=== PATIENT | male | born 1990 | race African-American/Black ===

== ENCOUNTER 2017-09-17 12:11 | Emergency (ER) | payer MEDICAID, OTHER ==
[~2017-09-17] VITALS: Ht 175.3 cm; Wt 112.5 kg
[2017-09-17] MEDS ORDERED: ACYCLOVIR400 MG ORAL (12:45)
[2017-09-17] MEDS ORDERED: TYLENOL EXTRA500 MG ORAL (12:45)
--- NOTE | 2017-09-17 12:45 | Emergency Room Report ---
History of Present Illness General Chief Complaint: Allergic Reaction Source: Patient Present Illness HPI 27-year-old male patient presents to ER complaining of swelling of his bottom lip. Patient reports that last night there was a bump on his lip that he tried to pop and when he woke up this morning it was much bigger. Reports thinks its "allergic reaction", denies exposure to new foods or known allergens. Patient denies any drainage from it. Patient reports a history of similar symptoms 1 year ago. Patient denies any other symptoms. Patient denies fever, chest pain , shortness of breath. Patient denies tongue swelling, vomiting, shortness of breath, tooth pain.reports to not take any medication for relief of symptoms. Denies history of trauma or biting lip. Allergies: Coded Allergies: No Known Allergies (Verified Allergy, Unknown, 11/24/08) Patient History Past Medical History: see triage record Reviewed Nursing Documentation: PMH: Agreed; PSxH: Agreed Nursing Documentation-PMH Past Medical History: No History, Except For Review of Systems All Other Systems: negative except mentioned in HPI Physical Exam Vital Signs Date Time Temp Pulse Resp B/P (MAP) Pulse Ox O2 Delivery O2 Flow Rate FiO2 09/17/17 12:23 98.2 74 18 143/90 100 Room Air 98.2 Sp02 EP Interpretation: reviewed, normal General Appearance: well appearing, no apparent distress, alert, GCS 15, non- toxic Head: normocephalic, atraumatic ENT: hearing grossly normal, normal pharynx, no angioedema, normal voice, uvula midline, moist mucus membranes Neck: full range of motion Respiratory: lungs clear, normal breath sounds, no rhonchi, no respiratory distress, no accessory muscle use, no wheezing, speaking full sentences Cardiovascular #1: regular rate, rhythm, no edema Musculoskeletal: back normal, digits/nails normal, gait/station normal, normal range of motion, non-tender Psychiatric: mood/affect normal Skin: other - bottome lip, right medial side: swollen lip, no teeth webster, no active drainage, discoloration noted, TTP, mild dried crust Medical Decision Making PA Attestation Dr. Adams is my supervising Physician whom patient management has been discussed with. Diagnostic Impression: Primary Impression: Sore of lower lip ER Course Pt. presents to the ED c/o cold sore on mouth. Ddx considered but are not limited to atopic dermatitis, gingivostomatitis, trauma, allergic reaction, fibrosis. Vital signs: are WNL, pt. is afebrile Ordered Benadryl. ER COURSE: PE consistent with trauma vs early onset/popped cold sore vs allergic reaction. Low suspicion for fibrosis or bacterial infection. Due to patient history of similar symptoms in the past, will provide treatment for cold sore. Provide patient with Benadryl if allergic reaction. Patient may use Abreva at home, OTC. Apply ice to help with swelling symptoms. F/u with PCP and discuss further treatment as needed. DISCHARGE: -Rx given for Acyclovir, 400mg TID x7 days. -Rx given for Tylenol for pain -Rx given for Benadryl. SE drowsiness, do not take prior to drinking driving or operating heavy machinery. At this time pt. is stable for d/c to home. Patient is resting comfortably in no acute distress, nontoxic appearing, talking, smiling without difficulty. Will provide printed patient care instructions, and any necessary prescriptions. Patient instructed to follow with primary care provider in 3-5 days for further treatment and referral as needed. Informed patient breakouts may occur during periods of stress or illness. Discuss future treatment options to prevent breakouts with patient; informed patient to discuss with primary care provider. Care plan and follow up instructions have been discussed with the patient prior to discharge. Patient reports understanding and agreement to treatment plan. Patient questions asked and answered. ER precautions given, patient instructed to return to ER immediately for any new or worsening of symptoms. -Please note this Emergency Department Report was dictated using [employer] technology software, occasionally this can lead to erroneous entry secondary to interpretation by the dictation equipment. Last Vital Signs Date Time Temp Pulse Resp B/P (MAP) Pulse Ox O2 Delivery O2 Flow Rate FiO2 09/17/17 12:23 98.2 74 18 143/90 100 Room Air 98.2 Disposition: HOME, SELF-CARE Condition: Stable Scripts Diphenhydramine Hcl* (BENADRYL*) 25 Mg Capsule 25 MG ORAL Q6H PRN for Itching, #15 CAP Prov: Adonay Singleton P.A. 09/17/17 Acetaminophen* (TYLENOL EXTRA STRENGTH*) 500 Mg Tablet 500 MG ORAL Q8H PRN for Prn Headache/Temp > 101, #30 TAB 0 Refills Prov: Adonay Singleton 09/17/17 Acyclovir* (ACYCLOVIR*) 400 Mg Tablet 400 MG ORAL THREE TIMES A DAY, #21 TAB Prov: Adonay Singleton 09/17/17 Patient Instructions: Cold Sore, [id number] Additional Instructions: Followup with primary care provider in 3 -5 days. Take medications as directed. Benadryl SE causes drowsiness, do not take prior to drinking, driving, or operating heavy machinery. Patient questions asked and answered. ER precautions given, patient instructed to return to ER immediately for any new or worsening of symptoms. Adonay Singleton September 17, 2017 12:45
[2017-09-17] MEDS ORDERED: BENADRYL25 MG ORAL (12:47)
[2017-09-17 12:48] VITALS: BP 144/88
[2017-09-17 12:57] VITALS: BP 144/88
== END 2017-09-17 12:58 | disposition home or self-care (01) ==
LOC: EMR 12:43
DX: K13.79 Other lesions of oral mucosa (principal)
CPT/HCPCS: 99284

== ENCOUNTER 2018-07-19 22:21 | Emergency (ER) | payer SELFPAY ==
[~2018-07-19] VITALS: Ht 175.3 cm; Wt 104.3 kg
[~2018-07-19 22:21] MED LIST: ACYCLOVIR400 MG ORAL; BENADRYL25 MG ORAL; TYLENOL EXTRA500 MG ORAL
[2018-07-19] MEDS ORDERED: NKM (22:29)
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
[2018-07-20] MEDS ORDERED: Norco 5mg/325mg tab ORAL ONE (00:15)
[2018-07-20] MEDS ORDERED: HYDROCODON-ACE1 EA15 ORAL (00:35)
[2018-07-20] MEDS ORDERED: IBUPROFEN600 MG ORAL (00:35)
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
[2018-07-20 00:45] VITALS: BP 122/61
[2018-07-20 01:00] VITALS: BP 122/61
--- NOTE | 2018-07-20 01:00 | NUR ---
ED Nurse Note: PT BEING D/C TO HOME, AWAKE, ALERT AND ORIENTED X 4, PT REFUSED ORAL MED FOR PAIN, STATES IS DRIVING, PT GIVEN PRESCRIPTION FOR PAIN MEDS TO TAKE AT HOME, ALSO GIVEN F/U INFO AND AFTER CARE INSTRUCTIONS, PT ARMBAND REMOVED, NAD NOTED DURING D/C TO HOME.
== END 2018-07-20 01:00 | disposition home or self-care (01) ==
LOC: EMR 23:55
DX: S39.012A Strain of muscle, fascia and tendon of lower back, initial encounter (principal); M54.2 Cervicalgia; V43.52XA Car driver injured in collision with other type car in traffic accident, initial encounter; Y92.89 Other specified places as the place of occurrence of the external cause; F17.200 Nicotine dependence, unspecified, uncomplicated
CPT/HCPCS: 99282

== ENCOUNTER 2018-11-30 21:02 | Emergency (ER) | payer MEDICAID, OTHER ==
[~2018-11-30] VITALS: Ht 175.3 cm; Wt 112.9 kg
[~2018-11-30 21:02] MED LIST changes: +HYDROCODON-ACE1 EA15 ORAL; +IBUPROFEN600 MG ORAL; +NKM
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
[2018-11-30] MEDS ORDERED: Acetaminophen 500mg (ES) tab ORAL ONE (22:15)
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
--- NOTE | 2018-11-30 23:08 | Diagnostic Imaging Report ---
Indication: Foot Pain Comparison: None Findings: 3 views of the right foot were obtained. No acute fractures, malalignment, erosions or periostitis are identified. Impression: No acute findings.
--- NOTE | 2018-11-30 23:08 | Diagnostic Imaging Report ---
Indication: Foot pain Comparison: None Findings: 3 views of the left foot were obtained. No acute fractures, malalignment, erosions or periostitis are identified. Marginal osteophytes noted in the area of the talonavicular joint consistent with arthrosis as well as a mild degenerative subluxation of the first MTP joint. Soft tissues are unremarkable. Impression: No acute findings
--- NOTE | 2018-11-30 23:09 | Diagnostic Imaging Report ---
Indication: left ankle pain Comparison: None Findings: 3 views of the left ankle obtained. Soft tissues are unremarkable. No acute fracture, malalignment, periostitis, or osteochondral defects are identified. Impression: No acute findings
[2018-11-30] MEDS ORDERED: IBUPROFEN600 MG ORAL (23:40)
[2018-12-01 00:10] VITALS: BP 114/78
--- NOTE | 2018-12-01 00:10 | NUR ---
ER Nurse Note: Pt seen, treated, medically cleared for discharge by ERMD. Discharge instuctions and prescriptions given with repeat verbalization by pt. Emphasized to follow up with primay care provider; take whole course of medication. Explained each medication. All orders completed per ERMD orders. Pt a&ox4, VSS, no signs of distress. ID band removed. All questions answered per pt's questions. CD of x-ray provided. Crutch teaching done, LT ankle wrapped and R.I.C.E taught. Pt left with all belongings, left with own transportation.
== END 2018-12-01 00:10 | disposition home or self-care (01) ==
LOC: EMR 21:21
DX: S93.402A Sprain of unspecified ligament of left ankle, initial encounter (principal); M24.574 Contracture, right foot; W17.89XA Other fall from one level to another, initial encounter; Y92.9 Unspecified place or not applicable
CPT/HCPCS: 99284